=== PATIENT | male | born 1975 | race Caucasian/White ===

== ENCOUNTER 2018-04-21 15:33 | Emergency (ER) | payer BC ==
[~2018-04-21] VITALS: Wt 112.8 kg
[2018-04-21] MEDS ORDERED: NORCO 325 MG-51 TA1 PO (17:57)
[2018-04-21] MEDS ORDERED: CEPHALEXIN500 M1 PO (17:57)
[2018-04-21 18:10] VITALS: BP 134/85
== END 2018-04-21 18:19 | disposition home or self-care (01) ==
LOC: ED 15:33
DX: S61.311A Laceration without foreign body of left index finger with damage to nail, initial encounter (principal); S61.213A Laceration without foreign body of left middle finger without damage to nail, initial encounter; Z23 Encounter for immunization; Z87.2 Personal history of diseases of the skin and subcutaneous tissue; W31.2XXA Contact with powered woodworking and forming machines, initial encounter; Y92.009 Unspecified place in unspecified non-institutional (private) residence as the place of occurrence of the external cause
CPT/HCPCS: 90715; J1885